=== PATIENT | female | born 2000 | race Caucasian/White ===

== ENCOUNTER 2018-04-19 08:35 | Emergency (ER) | payer BC ==
[~2018-04-19] VITALS: Ht 165.1 cm; Wt 60.1 kg
[2018-04-19 08:39] VITALS: Ht 165.1 cm; Wt 60.1 kg
--- NOTE | 2018-04-19 08:55 | EMERGENCY ROOM VISIT NOTE ---
History Report prepared by Skyler: Jose Juan Mcdonald Under the Supervision of: Dr. Jean Maldonado M.D. First contact with patient: 08:43 Chief Complaint: ILLNESS Stated Complaint: DIZZINESS, SHAKING, INCREASED HEART RATE History of Present Illness The patient is a 17 year old female who presents to the Emergency Room with complaints of dizziness and nausea that began yesterday afternoon. The patient sates that she just returned from a 45 day stay in [facility]. She notes that yesterday she felt dizzy and felt like she was "dehydrated." Around dinner time she got "woozy" and nauseous. She continues to complain that she felt warm ad felt like her heart was "racing." She took her temperature and it was normal and her mother checked her pulse. She notes that this morning her symptoms began to subside. She is still feeling a "stomach ache" but denies any fevers. Source of History: patient Onset: Yesteday afternoon Position: head Quality: other ("dizziness" felt like "dehdyrated" ) Timing: other (improvig) Associated Symptoms: + nausea, No fevers Review of Systems See HPI for pertinent positives and negatives. A total of ten systems were reviewed and were otherwise negative. Past Medical & Surgical No past medical history. Family History Patient reports no known family medical history. Social History Smoking Status: Never Smoker Drug Use: none Marital Status: single Occupation Status: student Current/Historical Medications Scheduled Minocycline (Minocin), 75 MG PO DAILY Allergies Coded Allergies: No Known Allergies (Unverified , 04/19/18) Physical Exam Vital Signs Date Time Temp Pulse Resp B/P (MAP) Pulse Ox O2 Delivery O2 Flow Rate FiO2 04/19/18 11:54 36.7 56 18 97/61 96 04/19/18 11:28 56 18 97/61 96 Room Air 04/19/18 08:39 36.7 76 18 108/73 100 Room Air Physical Exam Physical Exam GENERAL: She is oriented to person, place, and time. She appears well- developed and well-nourished. She does not appear distressed. HENT: Exam performed. Head: Normocephalic and atraumatic. Right Ear: External ear normal. No mastoid tenderness. Left Ear: External ear normal. No mastoid tenderness. Mouth/Throat: The oropharynx is clear and moist. No trismus in the jaw. No dental abscesses or uvula swelling. No oropharyngeal exudate or tonsillar abscesses. EYES: Conjunctivae and EOM are normal. Pupils are equal, round, and reactive to light. Right eye exhibits no discharge. Left eye exhibits no discharge. No scleral icterus. NECK: Normal range of motion. Neck supple. No JVD present. No spinous process tenderness present. No carotid bruit present. No rigidity. No tracheal deviation and normal range of motion present. No Brudzinski's sign and no Kernig 's sign noted. CV: Normal rate, regular rhythm, normal heart sounds and intact distal pulses. There is no peripheral edema. Palpable radial pulses bue. PULM/CHEST: Effort normal and breath sounds normal. No respiratory distress. No stridor. She has no wheezes. She has no rales. Chest Wall: She exhibits no tenderness. ABD: The abdomen is soft. Bowel sounds are normal. She has no distension. No mass is present. There is no tenderness. There is no rebound, no guarding, no Trinidad's sign and no tenderness at McBurney's point. Rovsig negative MUSC/SKEL: Normal range of motion. There is no peripheral edema, tenderness or deformity. LYMPH: No cervical adenopathy. NEURO: She is alert and oriented to person, place, and time. She has normal strength. No cranial nerve deficit or sensory deficit. Coordination and gait normal. GCS eye subscore is 4. GCS verbal subscore is 5. GCS motor subscore is 6. Cerebellar tests wnl. SKIN: Skin is warm and dry. She is not diaphoretic. PSYCH: She has a normal mood and affect. Behavior is normal. Judgment and thought content normal. Medical Decision & Procedures ER Provider Diagnostic Interpretation: Radiology results as stated below per my review and radiologist interpretation: CHEST 2 VIEWS ROUTINE CLINICAL HISTORY: Palpitations. COMPARISON STUDY: No previous studies for comparison. FINDINGS: Lung volumes are normal. Lungs are clear. There is no pneumothorax or pleural effusion. Pulmonary vascularity is normal. Cardiac size is normal. Mediastinal contours are normal. IMPRESSION: No acute cardiopulmonary findings. Electronically signed by: Refugio Wiley M.D. 04/19/2018 11:19 AM Dictated Date/Time: 04/19/2018 11:19 AM Laboratory Results 04/19/18 09:30 Red Blood Count 4.63, Mean Corpuscular Volume 86.4, Mean Corpuscular Hemoglobin 29.8, Mean Corpuscular Hemoglobin Concent 34.5, Mean Platelet Volume 10.1, Neutrophils (%) (Auto) 62.0, Lymphocytes (%) (Auto) 26.3, Monocytes (%) (Auto) 9.9, Eosinophils (%) (Auto) 1.0, Basophils (%) (Auto) 0.4, Neutrophils # (Auto) 3.18, Lymphocytes # (Auto) 1.35, Monocytes # (Auto) 0.51, Eosinophils # (Auto) 0.05, Basophils # (Auto) 0.02 04/19/18 09:30 Test 04/19/18 08:55 04/19/18 09:20 04/19/18 09:30 Urine Color YELLOW Urine Appearance CLEAR (CLEAR) Urine pH 6.5 (4.5-7.5) Urine Specific [place] 1.004 (1.000-1.030) Urine Protein NEG (NEG) Urine Glucose (UA) NEG (NEG) Urine Ketones NEG (NEG) Urine Occult Blood NEG (NEG) Urine Nitrite NEG (NEG) Urine Bilirubin NEG (NEG) Urine Urobilinogen NEG (NEG) Urine Leukocyte Esterase NEG (NEG) Urine Test NEG (NEG) White Blood Count 5.13 K/uL (4.8-10.8) Red Blood Count 4.63 M/uL (4.2-5.4) Hemoglobin 13.8 g/dL (12.0-16.0) Hematocrit 40.0 % (37-47) Mean Corpuscular Volume 86.4 fL (80-100) Mean Corpuscular Hemoglobin 29.8 pg (25-34) Mean Corpuscular Hemoglobin Concent 34.5 g/dl (32-36) Platelet Count 210 K/uL (130-400) Mean Platelet Volume 10.1 fL (7.4-10.4) Neutrophils (%) (Auto) 62.0 % Lymphocytes (%) (Auto) 26.3 % Monocytes (%) (Auto) 9.9 % Eosinophils (%) (Auto) 1.0 % Basophils (%) (Auto) 0.4 % Neutrophils # (Auto) 3.18 K/uL (1.4-6.5) Lymphocytes # (Auto) 1.35 K/uL (1.2-3.4) Monocytes # (Auto) 0.51 K/uL (0.11-0.59) Eosinophils # (Auto) 0.05 K/uL (0-0.5) Basophils # (Auto) 0.02 K/uL (0-0.2) RDW Standard Deviation 42.8 fL (36.4-46.3) RDW Coefficient of Variation 13.4 % (11.5-14.5) Immature Granulocyte % (Auto) 0.4 % Immature Granulocyte # (Auto) 0.02 K/uL (0.00-0.02) Prothrombin Time 11.2 SECONDS (9.0-12.0) Prothromb Time International Ratio 1.1 (0.9-1.1) Activated Partial Thromboplast Time 28.9 SECONDS (21.0-31.0) Partial Thromboplastin Ratio 1.1 D-Dimer < 190 ug/L FEU (0-500) Anion Gap 9.0 mmol/L (3-11) Est Creatinine Clear Calc Drug Dose 121.5 ml/min Estimated GFR () 147.7 Estimated GFR (Non- 127.4 BUN/Creatinine Ratio 11.7 (10-20) Calcium Level 9.3 mg/dl (8.5-10.1) Total Bilirubin 0.4 mg/dl (0.2-1) Direct Bilirubin 0.1 mg/dl (0-0.2) Aspartate Amino Transf (AST/SGOT) 17 U/L (15-37) Alanine Aminotransferase (ALT/SGPT) 21 U/L (12-78) Alkaline Phosphatase 64 U/L (45-117) Total Protein 8.4 gm/dl (6.4-8.2) Albumin 4.2 gm/dl (3.4-5.0) Lipase 143 U/L (73-393) Monoscreen NEG (NEG) Laboratory results reviewed by me Medications Administered Medications (Trade) Dose Ordered Sig/Gagandeep Route Start Time Stop Time Status Last Admin Dose Admin Sodium Chloride 1,000 ml @ 999 mls/hr Q1H1M STAT IV 04/19/18 09:02 04/19/18 10:02 DC 04/19/18 09:30 999 MLS/HR ECG Per My Interpretation Rate (beats per minute): 49 Rhythm: sinus bradycardia Findings: no ectopy, other (No ARABELLA/STD, intervals normal) ED Course 0846: The patient was evaluated in room B3B. A complete history and physical exam was performed. 0902: Ordered Sodium Chloride 1000 mL @ 999 mL/hr IV. 1140: Vitals are stable, physical exam, labs, EKG, and imaging are within normal limits. Patient's peripheral blood smear show no evidence of possible malaria. There are no documented fevers today or at home that make Malaria and/ or dengue extremely unlikely. The patient will be discharge home with follow-up PCP. DISCHARGE - Plan of care discussed with patient and questions answered. The patient was given both verbal and printed discharge instructions. The patient verbalized understanding and ability to comply. The patient is to seek outpatient follow up as noted in the discharge instructions. The patient verbalized understanding and ability to comply. The patient is discharged in stable condition. The patient was instructed to return for worsening symptoms. Medical Decision Vitals are stable, physical exam, labs, EKG, and imaging are within normal limits. Patient's peripheral blood smear show no evidence of possible malaria. There are no documented fevers today or at home that make Malaria and/or dengue extremely unlikely. The patient will be discharge home with follow-up PCP. DISCHARGE - Plan of care discussed with patient and questions answered. The patient was given both verbal and printed discharge instructions. The patient verbalized understanding and ability to comply. The patient is to seek outpatient follow up as noted in the discharge instructions. The patient verbalized understanding and ability to comply. The patient is discharged in stable condition. The patient was instructed to return for worsening symptoms. Medication Reconcilliation Current Medication List: was personally reviewed by me Blood Pressure Screening Patient's blood pressure: Normal blood pressure Impression Primary Impression: Dizziness Scribe Attestation The scribe's documentation has been prepared under my direction and personally reviewed by me in its entirety. I confirm that the note above accurately reflects all work, treatment, procedures, and medical decision making performed by me. The chart was completed utilizing [employer] Speech voice recognition software. Grammatical errors, random word insertions, pronoun errors, and incomplete sentences are an occasional consequence of this system due to software limitations, ambient noise, and hardware issues. Any formal questions or concerns about the content, text, or information contained within the body of this dictation should be directly addressed to the physician for clarification. Departure Information Dispostion Home / Self-Care Patient Instructions [facility]
[2018-04-19] MEDS ORDERED: SODIUM CHLORIDE 0.9% 1000ML 1,000 ML IV STA ×2 (09:02)
[2018-04-19] MEDS ORDERED: MINO75CA2 PO (09:09)
[2018-04-19 09:42] LABS: BASO % 0.4 %; BASO ABS # 0.02 K/uL (0-0.2); EOS ABS # 0.05 K/uL (0-0.5); HEMOGLOBIN 13.8 g/dL (12.0-16.0); IG# 0.02 K/uL (0.00-0.02); LYMPH % 26.3 %; LYMPH ABS # 1.35 K/uL (1.2-3.4); MEAN CELL VOLUME 86.4 fL (80-100); MEAN CORPUSCULAR HEMOGLOBIN 29.8 pg (25-34); MEAN CORPUSCULAR HGB CONC 34.5 g/dl (32-36); MEAN PLATELET VOLUME 10.1 fL (7.4-10.4); MONO % 9.9 %; MONO ABS # 0.51 K/uL (0.11-0.59); NEUT ABS # 3.18 K/uL (1.4-6.5); PLATELET COUNT 210 K/uL (130-400); RED CELL DISTRIBUTION WIDTH CV 13.4 % (11.5-14.5); RED CELL DISTRIBUTION WIDTH SD 42.8 fL (36.4-46.3); WHITE BLOOD COUNT 5.13 K/uL (4.8-10.8)
[2018-04-19 09:57] LABS: INR 1.1 (0.9-1.1); PTT PATIENT 28.9 SECONDS (21.0-31.0)
[2018-04-19 10:06] LABS: ALBUMIN 4.2 gm/dl (3.4-5.0); CALCIUM 9.3 mg/dl (8.5-10.1); CREATININE 0.67 mg/dl (0.60-1.20); POTASSIUM 3.8 mmol/L (3.5-5.1)
[2018-04-19 10:09] LABS: TOTAL PROTEIN 8.4 gm/dl (6.4-8.2)
--- NOTE | 2018-04-19 11:21 | DIAGNOSTIC IMAGING REPORT ---
CHEST 2 VIEWS ROUTINE CLINICAL HISTORY: Palpitations. COMPARISON STUDY: No previous studies for comparison. FINDINGS: Lung volumes are normal. Lungs are clear. There is no pneumothorax or pleural effusion. Pulmonary vascularity is normal. Cardiac size is normal. Mediastinal contours are normal. IMPRESSION: No acute cardiopulmonary findings. Electronically signed by: Refugio Wiley M.D. 04/19/2018 11:19 AM Dictated Date/Time: 04/19/2018 11:19 AM
[2018-04-19 11:54] VITALS: BP 97/61; PULSE 56; TEMP 36.7; O2SAT 96
== END 2018-04-19 11:56 | disposition home or self-care (01) ==
LOC: C.EDB 08:37
DX: R42 Dizziness and giddiness (principal); R00.2 Palpitations; R11.0 Nausea